=== PATIENT | male | born 1950 | race Caucasian/White ===

== ENCOUNTER 2017-10-08 15:36 | Inpatient (IN) | payer MEDICARE, BC ==
[~2017-10-08] VITALS: Ht 165.1 cm; Wt 69.0 kg
[2017-10-08 15:43] VITALS: BP 120/69
[2017-10-08] MEDS ORDERED: OMEPRAZOLE40 MG PO (15:48)
[2017-10-08 16:37] LABS: APTT 29.9 Seconds (25.0-31.3); INR 1.1; PROTIME 10.7 Seconds (9.20-11.50)
--- NOTE | 2017-10-08 17:25 | NUR ---
REPORT TO DEIRDRE VERGARA ON [facility]
[2017-10-08 18:01] VITALS: BP 152/87
[2017-10-08 18:20] VITALS: BP 116/86
--- NOTE | 2017-10-08 19:10 | NUR ---
PT TRANSFERED FROM ER TO RM 201. RECEIVED REPORT AND ASSUMED CARE AT 1755. VSS, CARDIAC MONITORING IN PLACE. PT DENIES ANY COMPLAINTS OF PAIN. ADMISSION ASSESSMENT COMPLETED CHARTED. PT ON RA, UP AD ELIZABETH IN ROOM. PT FULL LIQUIDS DIET R/T ESOPHAGEAL MASS. PULMONARY, GI, ONCOLOGY CONSULTED. BED IN LOWEST POSITION, CALL LIGHT WITHIN REACH. PT JUST INFORMED TODAY ABOUT METS. WILL CONTINUE TO MONITOR FOR REMAINDER OF THE SHIFT
[2017-10-08 19:15] VITALS: BP 99/69
[2017-10-08 21:50] VITALS: BP 114/69
[2017-10-09 04:43] VITALS: BP 133/71
[2017-10-09 04:51] LABS: ABSOLUTE BASOPHILS 0.1 thou/uL (0.0-0.2); ABSOLUTE EOSINOPHILS 0.2 thou/uL (0.0-0.7); ABSOLUTE LYMPHOCYTES 1.3 thou/uL (0.8-5.3); ABSOLUTE MONOCYTES 0.8 thou/uL (0.0-1.2); ABSOLUTE NEUTROPHILS 6.2 thou/uL (1.6-8.1); BASOPHILS 1.2 %; EOSINOPHILS 2.2 %; HEMATOCRIT 41.1 % (42.0-52.0); HEMOGLOBIN 14.1 gm/dL (14.0-18.0); MCH 30.2 pg (26.0-34.0); MCHC 34.3 g/dL (28.0-37.0); MCV 88.2 fL (80.0-100.0); MONOCYTES 9.1 %; MPV 9.7 fl. (7.2-11.1); NUCLEATED RBCS 0 /100WBC; PLATELET COUNT* 357 thou/uL (150-400); POLYS 72.5 %; RBC 4.66 mil/uL (4.50-6.00); RDW-CV 12.9 % (10.5-14.5); WBC 8.6 thou/uL (4.0-11.0)
[2017-10-09 04:52] LABS: CALCIUM 8.7 mg/dL (8.5-10.1); CREATININE 0.8 mg/dL (0.6-1.3); POTASSIUM 4.3 mmol/L (3.5-5.1)
--- NOTE | 2017-10-09 05:53 | NUR ---
PATIENT RESTED WELL THROUGH THE NIGHT. UP AD ELIZABETH IN ROOM. DENIES PAIN OR NEEDS. REFUSING SCD'S. TOLERATING DIET WELL. CALL LIGHT WITHIN REACH, ENCOURAGED TO CALL FOR NEEDS.
--- NOTE | 2017-10-09 07:30 | NUR ---
PT RESTING COMFORTABLY IN BED AT THIS TIME. PT DENIES PAIN. PT UP AD ELIZABETH AT THIS TIME. WILL CONTINUE TO MONITOR AND ASSESS.
[2017-10-09 08:00] VITALS: BP 103/73
[2017-10-09 11:10] VITALS: BP 109/71
--- NOTE | 2017-10-09 13:52 | NUR ---
Pt is A&O. Normally independent with ADLs, continues to work. No DME. No hx of HH or SNF. Supportive family that is involved in POC. Pt resides at home with his . Plan peg placement. Pulm, GI and Hem/Onc following. Will remain available for disposition.
[2017-10-09 16:35] VITALS: BP 107/75
--- NOTE | 2017-10-09 18:18 | NUR ---
PT VSS THIS SHIFT. PT NSR ON THE MONITOR. PT DENIES PAIN AT THIS TIME. PT AND FAMILY AWARE OF PLAN FOR TOMORROW WITH PORT PLACEMENT WELL PEG TUBE. PT AND FAMILY ABLE TO ASK APPROPRIATE QUESTIONS REGARDING PLAN OF CARE. PT WILL BE NPO AT MIDNIGHT TONIGHT BUT HAS BEEN ABLE TO ORDER SOFT FOODS FROM THE [facility] AND HAS TOLERATED DIET WELL THIS SHIFT. PT UP AD ELIZABETH WITH STEADY GAIT. HOLD HAS BEEN PLACED ON MAR VIA PHARMACY FOR LOVENOX FOR THE NEXT 2 DOSES. WILL CONTINUE TO ASSESS AND MONITOR.
[2017-10-09 20:00] VITALS: BP 103/75
[2017-10-09 23:35] VITALS: BP 111/85
--- NOTE | 2017-10-09 23:58 | NUR ---
PATIENT RESTING IN BED. DENIES COMPLAINTS OF PAIN OR DISCOMFORT. NPO AFTER MN FOR EGD AND PEG PLACEMENT. PATIENT UP AD ELIZABETH WITH SLOW STEADY GAIT. NO SIGN OF DISTRESS. CONT. WITH CURRENT PLAN OF CARE AT THIS TIME.
[2017-10-10] VITALS (7 sets, daily range): BP systolic 109–134; BP diastolic 74–81
[2017-10-10 05:23] LABS: ALBUMIN 2.9 g/dL (3.4-5.0); CALCIUM 8.8 mg/dL (8.5-10.1); CREATININE 0.8 mg/dL (0.6-1.3); POTASSIUM 4.8 mmol/L (3.5-5.1); TOTAL BILIRUBIN 0.6 mg/dL (<0.1-1.0); TOTAL PROTEIN 6.1 g/dL (6.4-8.2)
--- NOTE | 2017-10-10 08:36 | CON ---
[address] [address] CONSULTATION Name: AMADEO CRAWFORD Room: [address] IN M.R.#: [id number] Admission: 10/08/17 Attend Phys: Fady Roy MD Discharge: Date of : 54 Report #: [id number] THIS REPORT FOR: //name// CC: Fady Marquez MD DATE OF SERVICE: 10/09/2017 REQUESTING PHYSICIAN: Dr. Fady Roy. REASON FOR CONSULTATION: Pulmonary embolism. DISCUSSION: The patient is a pleasant nonsmoking 67-year-old man who was admitted after being sent to the Emergency Department yesterday. 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 However, he developed progressive dysphagia over the last couple of months with associated weight loss. He underwent recent endoscopy, which was done by Dr. Marquez. He underwent endoscopy recently, which was markedly abnormal. He was thought to have esophageal cancer. He was sent for a CT scan of his chest, abdomen and pelvis yesterday. On the CT scan of his chest, it did reveal probable small pulmonary emboli (nonobstructing) on the right. Because of those findings, he was sent to the ED by Dr. Marquez's office. He has been asymptomatic. Denies any chest pain, shortness of breath. He has had dysphagia. Difficulty eating. Has a lot of hiccups as well. He has had to modify his diet. He has lost about 30 pounds over the last several months. He has also stopped exercising due to the lack of energy. He is not aware of any prior history of thromboembolic disease. However, he did have a venous Doppler done in the year 1999, which showed thrombus in the left calf. Per the patient, that followed knee surgery and apparently was not thought that he needed any full anticoagulation therapy. He has had no recent travel. No periods of being immobile. He has not noticed any swelling of his legs. He is a nonsmoker. PAST MEDICAL HISTORY: Otherwise, fairly unremarkable. He does have a history of GERD and Garrison esophagus. He underwent the Halo procedure. He was getting periodic scans and was due to have followup a little bit later this year. However, due to the dysphagia, he did seek to get reevaluated sooner. He had knee surgery in the year 1999 and he had a tibial plateau fracture following a skiing incident. Also, herniorrhaphy. SOCIAL HISTORY: Nonsmoker. 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 [address] CONSULTATION Name: AMADEO CRAWFORD Room: [address] IN .R.#: [id number] Admission: 10/08/17 Attend Phys: Fady Roy MD Discharge: Date of : 54 Report #: [id number] FAMILY HISTORY: Positive for bladder cancer in a brother. He believes a brother also had some issues with DVT. No other family members have had thromboembolic disease that he is aware of. REVIEW OF SYSTEMS: A 12-point ROS was done. Note positives as above. It is otherwise negative. PHYSICAL EXAMINATION: GENERAL APPEARANCE: A man who looks stated age. Alert, cooperative. He is in no acute distress. HEENT: Head is normocephalic and atraumatic. Sclerae nonicteric. Mucous membranes are moist. NECK: Negative for adenopathy. No JVD is noted. No supraclavicular adenopathy. HEART: Regular rate and rhythm. No murmur or gallop is heard. LUNGS: Lung sounds are clear with good air exchange. No wheezing or crackles are heard. No pleural rub. ABDOMEN: Soft. No definite hepatosplenomegaly is noted. Liver edge does not appear tender. No inguinal adenopathy. EXTREMITIES: He has no clubbing. Radial pulses are present. Lower extremities are negative for edema. No calf tenderness. Homans' is negative. SKIN: Warm and dry. Scant varicosities are noted. NEUROLOGIC: He is alert and oriented x 3. Affect is normal. Judgment appears intact. Laboratory and x-ray findings, CT was reviewed. He probably has some small nonocclusive thrombus, right upper and right middle lobe. Large mass at GE junction. Esophagus is markedly dilated. There does appear to be particulate matter in the more proximal lobe. He does have bilateral small noncalcified pulmonary nodules. Most of these are less than a centimeter. On scan of his abdomen and pelvis, there are also findings for metastatic disease to his liver. His white blood cell count is 8600, hemoglobin 14.1, hematocrit of 41.1, platelets are normal. On his chemistry, potassium is 4.3, BUN of 4, creatinine of 0.8, AST 52, ALT 105, alkaline phosphatase 202. Total protein 7.1 with an albumin of 3.1. Baseline PT, PTT are unremarkable. IMPRESSION: 1. 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 2. Small nonobstructive pulmonary emboli. He may have a hypercoagulable state. He has not had any recent episodes of immobility, etc. 3. Elevated LFTs, most likely related to his metastatic disease. [address] [address] CONSULTATION Name: AMADEO CRAWFORD Room: [address] IN .R.#: [id number] Admission: 10/08/17 Attend Phys: Fady Roy MD Discharge: Date of : 54 Report #: [id number] RECOMMENDATIONS: 1. Currently, he is on high dose Lovenox, agree with that. 2. We will check venous Dopplers of his lower extremities. 3. Agree with Oncology seeing him. 4. It does appear that his clot burden is quite small and he is asymptomatic. He should be able to transition over to an oral anticoagulant. Eliquis or Xarelto may be good choices given their ease of use. 5. Duration of therapy will need to be determined in the future. If he does have ongoing risk factors, obviously would need to be continued potentially lifelong. <ELECTRONICALLY SIGNED> By: Klaus Griggs MD 10/10/17 0836 [id number] [id number] Yates MD /nt
--- NOTE | 2017-10-10 11:52 | NUR ---
CM nurse cost Xarelto for Pt, 15mg-$29.40, 20mg-$42/month.
--- NOTE | 2017-10-10 13:02 | NUR ---
ASSUMED CARE OF PATIENT THIS AM AT 0730. PATIENT IS ALERT AND ORIENTED X 4. HE C/O MILD PAIN IN THE LUQ THIS AM. PATIENT HAS BEEN NPO FOR SCHEDULED PROCEDURES. CONSENTS SINED AND ON THE CHART. PATIENT TAKEN TO IR PER BED THIS AM. HE RETURNED AROUND 1100 THIS AM PER BED. PORTACATH PLACED AND GT PLACED. PATIENT IS TO BE NPO UNTIL 5PM THIS EVENING. TELE SHOWS SR. PATIENT C/O RETURNING PAIN THIS AFTERNOON. DR BURGOS NOTIFIED. PAIN MEDICATION ORDERED. WILL CONTINUE TO MONITOR.
[2017-10-10] MEDS ORDERED: XARELTO15 MG PO (13:47)
[2017-10-10] MEDS ORDERED: XARELTO20 MG PO (13:47)
[2017-10-11] VITALS: BP 111/72
[2017-10-11 04:00] VITALS: BP 113/81
--- NOTE | 2017-10-11 04:22 | NUR ---
ASSUMED PT CARE AT 1930, NURSING ASSESSMENT COMPLETED AT START OF SHIFT. PT TRACING SINUS TACHY/SINUS RHYTHM ON VEHICLE REFINISHER WITH HR IN LOW 110'S TO 80'S. PRN PAIN MEDICATION ADMINISTERED THIS SHIFT FOR ABDOMINAL PAIN. SEE EMAR FOR DOCUMENTATION. HOURLY ROUNDING COMPLETED, CALL LIGHT WITHIN REACH. NO FALLS THIS SHIFT.
[2017-10-11 08:15] VITALS: BP 106/74
--- NOTE | 2017-10-11 08:29 | NUR ---
CM received call back from [facility], Pt's tube feedings will be covered at 100%, updated nurse and Pt. [facility] to contact Pt to arrange delivery.
[2017-10-11] MEDS ORDERED: OXYCODONE HCL 55 MG PO (10:08)
[2017-10-11] MEDS ORDERED: XARELTO20 MG PO (10:12)
--- NOTE | 2017-10-11 10:35 | NUR ---
RECIEVED REPORT FROM [facility]IN AND ASSUMED CARE OF PT @ 4143.PT IS A/O X4,VSS,TRACING SINUS TACH ON MONITOR.LUNG SOUNDS ARE CLEAR.LAST BM WAS TODAY.IV LEFT WRIST PATENT AND SALINE LOCKED.PEG TUBE SECURE IN PLACE.PT IS CALM AND COOPERATIVE WITH NO C/O PAIN AT TIME OF ASSESSMENT.PT IS UP AD ELIZABETH IN ROOM.LEFT RESTING IN CHAIR WITH CALL LIGHT WITHI IN REACH. DOCTOR SAW PT AND OK FOR DISCHARGE.PAIGE DROPPED OFF PEG TUBE EQUIPMENT AND EDUCATED PT ON USE.
--- NOTE | 2017-10-11 11:58 | NUR ---
PT OK FOR DISCHARGE.DISCHARGE PAPERWORK COMPLETED AND GONE OVER WITH PT AND SPOUSE.PRESCRIPTIONS GONE OVER AND GIVEN TO PT.ALL PERSONAL BELONGINGS PACKED AND TAKEN WITH PT.PT WHEELED OUT BY NURSING STAFF TO PERSONAL VEHICLE.
--- NOTE | 2017-10-16 11:41 | CON ---
[address] [address] CONSULTATION Name: AMADEO CRAWFORD Room: [address] IN M.R.#: [id number] Admission: 10/08/17 Attend Phys: Fady Roy MD Discharge: 10/11/17 Date of : 54 Report #: [id number] THIS REPORT FOR: //name// CC: Fady Marquez DATE OF SERVICE: 10/09/2017 DIAGNOSIS: Gastroesophageal junction carcinoma. SUBJECTIVE: This is a 67-year-old male who had history of Garrison esophagus many years ago, was evaluated most recently with dysphagia with a 30-pound weight loss. He had endoscopy last week and biopsy of the mass was concerning for malignancy. He presented to the hospital and had scans including chest and abdomen. His CT scan of the chest showed circumferential distal esophageal mass extending into the GE junction and bulging the posterior wall of the distal esophagus involving fat and posterior mediastinum. Extraluminal mass extends up to the anterior margin of the descending aorta, pulmonary metastatic disease. There was also nonobstructing right middle lobe and right lower lobe pulmonary emboli. A CT of the abdomen showed abnormal circumferential mass extending to the distal esophagus and gastroesophageal junction over a 6.5 cm segment with wall thickening measuring up to 1.4, finding suggestive of malignancy of the distal esophagus. Nodules evident on both lung bases, extensive low attenuation lesion extends to the liver, too numerous to count. I discussed these findings with the patient and his who was present at the bedside. We are still waiting on the final pathology results. REVIEW OF SYSTEMS: All systems reviewed, was negative except above. PAST MEDICAL HISTORY: Garrison esophagus, GERD. PAST SURGICAL HISTORY: Hernia surgery, left knee surgery. FAMILY HISTORY: No family history of malignancy. SOCIAL HISTORY: No smoking. He drinks alcohol socially. ALLERGIES: PENICILLIN. MEDICATIONS: Omeprazole 40 mg p.o. twice a day. PHYSICAL EXAMINATION: VITAL SIGNS: Today, temperature 36.8, pulse 78, respirations 16, blood pressure is 103/73, SpO2 was 99% on room air. GENERAL: The patient was lying in bed. [place] [address] CONSULTATION Name: AMADEO CRAWFORD Room: [address]#: [id number] Admission: 10/08/17 Attend Phys: Fady Roy MD Discharge: 10/11/17 Date of : 54 Report #: [id number] HEENT: Clear to auscultations bilaterally. HEART: Regular rate and rhythm. S1, S2 within normal limits. ABDOMEN: Soft, nontender, nondistended, bowel sounds positive. EXTREMITIES: No edema, no cyanosis, no clubbing. LABORATORY DATA: Today, WBC 8.6, hemoglobin 14.1, platelets 357. Sodium is 142, chloride is 103, BUN is 4, creatinine 0.8. Coagulation is PT 10.7, PTT 29.9. ASSESSMENT: A 67-year-old male was evaluated because of newly diagnosed gastroesophageal junction mass, biopsy is still pending. His imaging was suggestive of metastatic disease. RECOMMENDATIONS: 1. I would like to wait for the final pathology. In addition to that, if it is adenocarcinoma, we will check for HER-2 status to see if the patient is qualified for Herceptin treatment. In addition to that, I would like to obtain a PET/CT scan as an outpatient. 2. Pulmonary embolism. Currently, the patient is on Lovenox. In terms of long-term anticoagulation, I do recommend continued anticoagulation while the patient has active malignancy. Xarelto or Eliquis is reasonable options with patients with malignancy. I recommend the case resolution specialist to check his insurance coverage. 3. The patient most likely will need systemic treatment for his malignancy. The patient agreed to proceed with a port placement. We will arrange that while the patient is hospitalized. We will follow the patient during hospitalization. <ELECTRONICALLY SIGNED> By: Karen Riddle MD 10/16/17 1141 1116 [id number] Riddle MD /nt
--- NOTE | 2017-10-19 13:09 | CON ---
[address] [address] CONSULTATION Name: AMADEO CRAWFORD Room: [address] IN M.R.#: [id number] Admission: 10/08/17 Attend Phys: Fady Roy MD Discharge: 10/11/17 Date of : 54 Report #: [id number] THIS REPORT FOR: //name// CC: Fady Marquez DATE OF SERVICE: 10/09/2017 ADDENDUM Consult number is [id number]. I have personally seen and examined the patient and reviewed labs and imaging. This is a very pleasant white male with history of Garrison's esophagus who has recently been diagnosed with esophageal adenocarcinoma stage 4 within the last [address], there was a suspicion of pulmonary embolism and we admitted the patient to the hospital. The patient just completed the lower extremity ultrasound and there is no evidence of deep vein thrombosis. He is scheduled for a Port-A-Cath tomorrow by IR, which will be placed. I also recommended a PEG tube placed by Interventional radiology. Finally, Dr. Riddle from Oncology has seen the patient and ordered some further studies. We will continue to follow up the patient during hospitalization. <ELECTRONICALLY SIGNED> By: Juan Marquez MD 10/19/17 1309 1719 [id number] Joseph Marquez MD /nt
--- NOTE | 2017-10-19 13:09 | CON ---
[address] [address] CONSULTATION Name: AMADEO CRAWFORD Room: [address] IN M.R.#: [id number] Admission: 10/08/17 Attend Phys: Fady Roy MD Discharge: 10/11/17 Date of : 54 Report #: [id number] THIS REPORT FOR: //name// CC: Fady Marquez DICTATED BY: Vianca Childress [facility] DATE OF SERVICE: 10/09/2017 Please note at the time of this dictation, the patient was seen and physically examined by myself. REASON FOR CONSULTATION: Esophageal adenocarcinoma. HISTORY OF PRESENT ILLNESS: This is a 67-year-old male who was first seen in our office as a new patient 2 weeks ago with complaints of dysphagia. He had a longstanding history of Garrison's esophagus and had been followed by another GI group and during that time, he underwent EGD with Halos with his last Halo being in fall and was told for followup in 3 years. The patient has been maintained on his PPI b.i.d. since that time and he has had no issues up until recently within the last couple of months, he started noticing a little difficulty in swallowing and he started having some weight loss, prompting him to seek out further medical care. His previous GI doctor had retired and therefore, he was referred to us. He underwent an EGD by Dr. Marquez last Sunday, a week ago and was found to have a very large esophageal mass that was highly suspicious for cancer. At that time, he was immediately set up for CTs of the chest, abdomen and pelvis for further evaluation. Yesterday, received a call from the electrical engineering technologist, technician at [facility] after he was informed by the radiologist that the patient needed to be notified for possible PE and to have further PE images performed. After discussing plan of care with Dr. Marquez, the patient was called and informed that he needed to go to the Emergency Room in which he was brought here to [place] by his for further evaluation, which did verify that he did have PEs that were noted at that time. The patient remained asymptomatic. He denied any fever or chills, any leg swelling, pain in his legs, chest pain or any shortness of air at that time. Dr. Yates has already seen the patient from Pulmonary and Dr. Riddle saw the patient earlier and is doing further labs on his pathology that was done last week. Plans are for a Port-A-Cath tomorrow for further treatment. ALLERGIES: TO PENICILLIN. MEDICATIONS: Omeprazole [address] [place] [address] CONSULTATION Name: AMADEO CRAWFORD Room: [address] IN M.R.#: [id number] Admission: 10/08/17 Attend Phys: Fady Roy MD Discharge: 10/11/17 Date of : 54 Report #: [id number] PAST MEDICAL HISTORY: History of Garrison's esophagus, GERD. PAST SURGICAL HISTORY: He has had Halos in the past, left knee surgery and hernia surgery in 2011. EGD was done last week. Last colonoscopy was in 2014. He does have a history of polyps, which is not due until 2019. FAMILY HISTORY: Noncontributory. SOCIAL HISTORY: He does drink some alcohol socially. Denies any tobacco or illegal drug use at this time. REVIEW OF SYSTEMS: Twelve-point review of systems is essentially negative except what is mentioned in the HPI. PHYSICAL EXAMINATION: VITAL SIGNS: Temperature 36.8, pulse 78, respirations 16, blood pressure 103/73. HEART: Regular rate and rhythm. LUNGS: Clear. ABDOMEN: Soft, positive bowel sounds in all 4 quadrants with no masses or tenderness noted. LABORATORY DATA: Hemoglobin 14.1, hematocrit 41.1, white count is 8.6, platelets 357. Sodium 142, potassium 4.3, chloride 28, BUN is 4, creatinine is 0.8, glucose is 83. GFR is 97. PT is 10.7, INR is 1.1. Total bilirubin 0.5, alkaline phosphatase 202, ALT 105, AST is 52 and CEA was 52.0. IMPRESSION: 1. 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 2. Pulmonary emboli secondary to hypercoagulability state. 3. Increased liver function tests, likely secondary to #1. PLAN: 1. Consult Interventional Radiology for PEG tube placement prior to starting anticoagulant therapy for his PE. 2. Dietary consultation regarding supplementation via his PEG tube for bolus or nocturnal feedings. 3. Labs AFP. 4. Further recommendations to be made after Dr. Marquez sees the patient later today. Thank you for allowing us to participate in this patient's care. Please do not hesitate to call with any questions in regard to this consult. ADDENDUM [address] [address] CONSULTATION Name: AMADEO CRAWFORD Room: [address] IN M.R.#: [id number] Admission: 10/08/17 Attend Phys: Fady Roy MD Discharge: 10/11/17 Date of : 54 Report #: [id number] I have personally seen and examined the patient and reviewed labs and imaging. This is a very pleasant white male with history of Garrison's esophagus who has recently been diagnosed with esophageal adenocarcinoma stage 4 within the last [address], there was a suspicion of pulmonary embolism and we admitted the patient to the hospital. The patient just completed the lower extremity ultrasound and there is no evidence of deep vein thrombosis. He is scheduled for a Port-A-Cath tomorrow by IR, which will be placed. I also recommended a PEG tube placed by Interventional radiology. Finally, Dr. Riddle from Oncology has seen the patient and ordered some further studies. We will continue to follow up the patient during hospitalization. <ELECTRONICALLY SIGNED> By: Juan Marquez MD 10/19/17 1309 1208 [id number] Marquez MD /nt
== END 2017-10-11 11:20 | disposition home or self-care (01) | DRG 374 ==
LOC: M.ERS 15:36 → M.2W 16:37 → M.TBA-ER 16:37 → M.2W 17:54
PROVIDERS: Internal Medicine; Nurse Practitioner Family; ADMIT Internal Medicine
PROC: B548ZZA Ultrasonography of Superior Vena Cava, Guidance (ICD-10-PCS; principal; 2017-10-10)
PROC: 0JH63WZ Insertion of Totally Implantable Vascular Access Device into Chest Subcutaneous Tissue and Fascia, Percutaneous Approach (ICD-10-PCS; principal; 2017-10-10)
PROC: B5181ZA Fluoroscopy of Superior Vena Cava using Low Osmolar Contrast, Guidance (ICD-10-PCS; principal; 2017-10-10)
PROC: 0DH63UZ Insertion of Feeding Device into Stomach, Percutaneous Approach (ICD-10-PCS; principal; 2017-10-10)
PROC: 02HV33Z Insertion of Infusion Device into Superior Vena Cava, Percutaneous Approach (ICD-10-PCS; principal; 2017-10-10)
DX: C15.9 Malignant neoplasm of esophagus, unspecified (principal); I26.99 Other pulmonary embolism without acute cor pulmonale; D68.59 Other primary thrombophilia; E44.1 Mild protein-calorie malnutrition; C78.7 Secondary malignant neoplasm of liver and intrahepatic bile duct; C78.00 Secondary malignant neoplasm of unspecified lung; K22.70 Barrett's esophagus without dysplasia; R79.89 Other specified abnormal findings of blood chemistry; K21.9 Gastro-esophageal reflux disease without esophagitis; Z80.52 Family history of malignant neoplasm of bladder; Z84.89 Family history of other specified conditions; Z88.0 Allergy status to penicillin; Z79.899 Other long term (current) drug therapy

== ENCOUNTER → 2017-10-08 | Outpatient (CLI) | payer MEDICARE, BC ==
[~2017-10-08] MED LIST: OMEPRAZOLE40 MG PO; OXYCODONE HCL 55 MG PO; XARELTO15 MG PO; XARELTO20 MG PO
[2017-10-08 09:55] LABS: ABSOLUTE BASOPHILS 0.1 thou/uL (0.0-0.2); ABSOLUTE EOSINOPHILS 0.2 thou/uL (0.0-0.7); ABSOLUTE LYMPHOCYTES 1.1 thou/uL (0.8-5.3); ABSOLUTE MONOCYTES 0.7 thou/uL (0.0-1.2); ABSOLUTE NEUTROPHILS 8.1 thou/uL (1.6-8.1); EOSINOPHILS 1.9 %; HEMATOCRIT 44.1 % (42.0-52.0); HEMOGLOBIN 14.7 gm/dL (14.0-18.0); LYMPHOCYTES 10.4 %; MCH 29.7 pg (26.0-34.0); MCHC 33.2 g/dL (28.0-37.0); MCV 89.4 fL (80.0-100.0); MPV 8.9 fl. (7.2-11.1); NUCLEATED RBCS 0 /100WBC; PLATELET COUNT* 391 thou/uL (150-400); POLYS 79.7 %; RBC 4.93 mil/uL (4.50-6.00); RDW-CV 13.3 % (10.5-14.5); WBC 10.1 thou/uL (4.0-11.0)
[2017-10-08 10:06] LABS: ALBUMIN 3.1 g/dL (3.4-5.0); POTASSIUM 4.5 mmol/L (3.5-5.1); TOTAL BILIRUBIN 0.5 mg/dL (<0.1-1.0); TOTAL PROTEIN 7.1 g/dL (6.4-8.2)
== END ==
LOC: M.LAB 09:34 → M.CT 11:00
PROVIDERS: Internal Medicine Gastroenterology
DX: C15.9 Malignant neoplasm of esophagus, unspecified (principal); K21.9 Gastro-esophageal reflux disease without esophagitis